=== PATIENT | female | born 1990 | race Caucasian/White ===

== ENCOUNTER 2018-03-26 06:15 | Day surgery (SDC) | payer BC ==
[~2018-03-26] VITALS: Ht 167.6 cm; Wt 91.0 kg
[2018-03-26 07:00] LABS: APPEARANCE SL.HAZY ((CLEAR)); BILIRUBIN NEGATIVE; BLOOD NEGATIVE; COLOR YELLOW ((YELLOW)); GLUCOSE (STRIP) NEGATIVE; KETONES 20; LEUKOCYTES NEGATIVE; NITRITE NEGATIVE; PROTEIN (STRIP) NEGATIVE; SPECIFIC GRAVITY 1.027 (1.000-1.030); UROBILINOGEN 0.2 MG/DL (0.2-1.0)
[2018-03-26 07:22] LABS: BACTERIA RARE /HPF; EPITHELIAL CELLS 1+ /HPF; MUCUS TRACE /LPF; RED BLOOD CELLS 0-5 /HPF (0-5); WHITE BLOOD CELLS 0-5 /HPF (0-5)
[2018-03-26 07:58] LABS: BASOPHIL (%) 0.3 % (0-1); EOSINOPHIL (%) 0.1 % (0-5); HEMATOCRIT 43.6 % (36.0-46.0); HEMOGLOBIN 15.1 G/DL (11.9-15.5); IMMATURE GRANULOCYTE (%) 0.2 % (0.0-0.7); LYMPHOCYTE (%) 7.7 % (15-42); LYMPHOCYTE COUNT 1.1 K/uL (1.0-2.8); MCHC 34.6 G/DL (30.0-36.0); MCV 86.7 FL (83-99); MONOCYTE (%) 3.8 % (3-12); MONOCYTE COUNT 0.5 K/uL (0-0.8); NEUTROPHIL (%) 87.9 % (45-76); NEUTROPHIL COUNT 12.3 K/uL (1.8-6.4); PLATELET COUNT 230 K/uL (156-360); RBC DIS.WIDTH-CV 12.5 % (11.8-14.6); RBC DIS.WIDTH-SD 39.7 % (39-53); RED BLOOD COUNT 5.03 M/uL (3.80-5.20)
[2018-03-26 08:10] LABS: ALBUMIN 4.1 g/dL (3.2-4.8); CHLORIDE 106 mEq/L (99-109); POTASSIUM 3.8 mEq/L (3.7-5.4); SODIUM 138 mEq/L (136-147)
[2018-03-26 08:13] LABS: GLUCOSE 121 mg/dL (70-99); TOTAL PROTEIN 7.2 g/dL (6.4-8.3)
[2018-03-26 08:14] LABS: TOTAL BILIRUBIN 0.5 mg/dL (0.0-1.0)
[2018-03-26 08:16] LABS: ALKALINE PHOSPHATASE 64 IU/L (3-129); CREATININE 0.7 mg/dL (0.6-1.3); GFR ESTIMATE (CALCULATED) > 59 mL/min/
[2018-03-26 08:17] LABS: UREA NITROGEN (BUN) 9 mg/dL (9-23)
[2018-03-26 08:18] LABS: AST (GOT) 19 IU/L (2-34)
[2018-03-26 08:19] LABS: ALT (GPT) 21 IU/L (3-49)
[2018-03-26 08:25] LABS: QUANTITATIVE HCG < 4.0 MIU/ML
[2018-03-26 08:54] LABS: LIPASE 14 U/L (1.0-51.0)
[2018-03-26] MEDS ORDERED: SPRINTEC1 EACH PO (09:52)
[2018-03-26 11:24] VITALS: BP 120/75
[2018-03-26] MEDS ORDERED: COLACE100 MG PO (14:43)
[2018-03-26] MEDS ORDERED: ONDANSETRON HCL8 MG PO (14:43)
[2018-03-26] MEDS ORDERED: DILAUDID4 MG PO (14:43)
[2018-03-26 17:20] VITALS: BP 121/64
[2018-03-26 18:08] VITALS: BP 129/82
== END 2018-03-26 18:20 | disposition home or self-care (01) ==
LOC: EME 06:15 → SDC 11:23
PROVIDERS: Emergency Medicine
PROC: 0DTJ4ZZ Resection of Appendix, Percutaneous Endoscopic Approach (ICD-10-PCS; principal; 2018-03-26)
DX: K35.80 Unspecified acute appendicitis (principal)
CPT/HCPCS: 74177; 80053; 81003; 83690; 84702; 85025; 88304; 99281; 99285; J0690; J1100; J1170; J2250; J2270; J2405; J2710; J2765; J3010; J7030; J7643